=== PATIENT | female | born 1955 | race Two or more races ===

== ENCOUNTER → 2024-04-08 | Outpatient (CLI) | payer MEDICARE, MEDICAID, SELFPAY ==
--- NOTE | 2024-04-08 13:30 | XR_ITS ---
Examination: Screening digital mammography, bilateral Computer aided detection 3-D breast Tomosynthesis, bilateral Date and time of exam: April 08, 2024 1307 hours Compared to mammograms dating to January 05, 2020 Indication: Screening Technique: Nonmagnified MLO, CC views of the breasts to been obtained, reconstructed from 3-D Tomosynthesis images. R2 computer aided detection program utilized for evaluation of suspicious masses and/or abnormal calcifications. 3-D Tomosynthesis images obtained. Findings: Scattered areas of fibroglandular density Benign calcifications 6 mm focal asymmetry upper outer left breast anterior depth Impression: BI-RADS Category 0: Incomplete: Need additional imaging evaluation 6 mm focal asymmetry upper outer left breast anterior depth, recommend follow-up spot tomographic views of this asymmetry as well as left breast sonography to complete the workup
== END | disposition home or self-care (01) ==
LOC: CDIM 12:56
PROVIDERS: Referring Provider Nurse Practitioner Family; Visit Provider Nurse Practitioner Family
DX: Z12.31 Encounter for screening mammogram for malignant neoplasm of breast (principal); N64.89 Other specified disorders of breast
CPT/HCPCS: 77063; 77067

== ENCOUNTER → 2024-04-24 | Outpatient (CLI) | payer MEDICARE, MEDICAID, SELFPAY ==
--- NOTE | 2024-04-24 10:00 | XR_ITS ---
Examination: Breast ultrasound, unilateral, left complete Date and time of exam: April 24, 2024 1004 hours INDICATIONS: Mammogram April 08, 2024 6 mm focal asymmetry outer left breast Technique: Real-time gill scale ultrasonographic imaging performed left breast including all 4 quadrants as well as nipple retroareolar and axillary region. Findings: No cystic or solid mass IMPRESSION: BI-RADS Category 1: Negative study
== END | disposition home or self-care (01) ==
LOC: CDIM 09:38
PROVIDERS: PCP Nurse Practitioner Family; Referring Provider Nurse Practitioner Family; Visit Provider Nurse Practitioner Family
DX: N64.89 Other specified disorders of breast (principal)
CPT/HCPCS: 76641

== ENCOUNTER → 2024-07-15 | Outpatient (CLI) | payer MEDICARE, MEDICAID, SELFPAY ==
--- NOTE | 2024-07-15 14:20 | XR_ITS ---
Examination: Bone densitometry Date and time of exam:July 15, 2024 1439 hours INDICATIONS: Hysterectomy age 26, family history father hip fracture, calcium and vitamin D 5 years, personal history osteoporosis Technique: Lumbar spine and hip total bone mineralization values of an calculated. Peak reference and age match control results have been displayed. Findings: Lumbar spine total bone mineralization is0.768 gm/cm2. This is 2.5 standard deviations below peak reference. This is 0.4 standard deviations below age-matched controls. Hip total bone mineralization is 0.843 gm/cm2 This is 0.9 standard deviations below peak reference. This is 0.6 standard deviations above age-matched controls Impression: There is osteoporosis based on lumbar spine measurements. There is osteopenia based on hip measurements Lumbar mineralization is increased 1.8% compared with November 10, 2021 Hip mineralization is increased 2.1% compared with November 10, 2021
--- NOTE | 2024-07-15 14:22 | XR_ITS ---
Examination: Foot, left, 3 views Technique: AP, oblique, lateral views foot, 3 views Date and time of exam: July 15, 2024 1435 hours INDICATIONS: Twisting injury to the foot one year ago FINDINGS: Prominent osteopenia Moderate narrowing first metatarsophalangeal joint No fracture or dislocation IMPRESSION: No fracture or dislocation
== END | disposition home or self-care (01) ==
LOC: CDIM 14:07
PROVIDERS: Referring Provider Nurse Practitioner Family; Visit Provider Nurse Practitioner Family
DX: Z13.820 Encounter for screening for osteoporosis (principal); M81.0 Age-related osteoporosis without current pathological fracture; M85.89 Other specified disorders of bone density and structure, multiple sites; M25.572 Pain in left ankle and joints of left foot
CPT/HCPCS: 73630; 77080

== ENCOUNTER → 2025-02-24 | Outpatient (CLI) | payer MEDICARE, MEDICAID, SELFPAY ==
--- NOTE | 2025-02-24 13:21 | XR_ITS ---
EXAMINATION: PA lateral chest 2 views TECHNIQUE: Upright PA lateral chest 2 views Date and time: February 24, 2025, 1353 hours, comparison October 30, 2016 INDICATIONS: Cough and chest pain beginning 2 days ago FINDINGS: Normal heart size No pneumonia or pulmonary edema Osseous structures are intact IMPRESSION: No active disease
== END | disposition home or self-care (01) ==
DX: R05.9 Cough, unspecified (principal); R07.9 Chest pain, unspecified
CPT/HCPCS: 71046

== ENCOUNTER → 2025-03-02 | Outpatient (CLI) | payer MEDICARE, MEDICAID, SELFPAY ==
[2025-03-02 09:54] LABS: Quantiferon-TB* See Sep Rpt
[2025-03-02 14:13] LABS: Cocci Serology, IgM Negative (Negative)
[2025-03-05 12:11] LABS: Cocci Serology, IgG Negative (Negative)
== END | disposition home or self-care (01) ==
DX: R05.9 Cough, unspecified (principal)
CPT/HCPCS: 36415; 86331; 86480; 86635